=== PATIENT | female | born 1940 | race Caucasian/White ===

== ENCOUNTER 2016-06-13 15:33 | Outpatient (CLI) | payer MEDICARE, OTHER ==
--- NOTE | 2016-06-13 16:08 | RAD ---
CHEST TWO VIEWS: 06/13/16 HISTORY: Cough. Heart size and mediastinum are within normal limits. The lungs are clear of infiltrates. There are a rthritic changes of the spine. IMPRESSION: No active intrathoracic disease. POS: [facility]
== END 2016-06-13 15:34 | disposition home or self-care (01) ==
LOC: NAV RAD 15:33
PROVIDERS: ATTEND Internal Medicine
DX: J20.9 Acute bronchitis, unspecified (principal)
CPT/HCPCS: 71020

== ENCOUNTER 2016-12-19 09:23 | Outpatient (CLI) | payer MEDICARE, OTHER ==
[2016-12-19 12:26] LABS: #Basophils 0.1 thou/uL (0.0-0.2); #Eosinphils 0.1 thou/uL (0.0-0.7); #Lymphocytes 1.2 thou/uL (1.20-3.40); #Monocytes 0.3 thou/uL (0.11-0.59); #Neutrophils 2.1 thou/uL (1.40-6.50); %Basophils 1.7 % (0.0-1.0); %Eosinophils 3.8 % (0.0-10.0); %Monocytes 6.7 % (0.0-10.0); %Neutrophils 55.8 % (42.0-75.0); Hemoglobin 12.5 g/dL (12.0-16.0); Mean Corpuscular HGB CONC 31.2 g/dL (32.0-36.0); Mean Corpuscular Hemoglobin 28.3 pg (27.0-31.0); Mean Corpuscular Volume 90.8 fl (81.0-99.0); Mean Platelet Volume 7.8 fL (7.4-10.4); Platelet Count 177 thou/uL (130-400); RBC Distribution Width 12.4 % (11.5-14.5); Red Blood Cell (RBC) Count 4.41 mill/uL (4.20-5.40); White Blood Cell (WBC) Count 3.7 thou/uL (4.8-10.8)
[2016-12-19 12:55] LABS: ALT (SGPT) 18 U/L (8-55); AST (SGOT) 21 U/L (5-34); Albumin 4.1 g/dL (3.4-4.8); Alkaline Phosphatase 61 U/L (40-150); Anion Gap 14 mmol/L (10-20); BUN (Urea Nitrogen) 14 mg/dL (9.8-20.1); Bilirubin, Direct 0.2 mg/dL (0.1-0.3); Bilirubin, Total 0.4 mg/dL (0.2-1.2); Calc. Creatinine Clearance 0 mL/min (70-130); Carbon Dioxide 28 mmol/L (23-31); Cardiac Risk 2.5 (Less than 4.5); Chloride 105 mmol/L (98-107); Cholesterol 194 mg/dl (< 200 Desired); Estimated GFR-MDRD 73; Globulin 2.1 g/dL (2.4-3.5); Glucose 107 mg/dL (83-110); HDL Cholesterol 78 mg/dL (>60 Neg Risk); LDL Cholesterol, Calculated 101 mg/dL; Potassium 5.1 mmol/L (3.5-5.1); Protein, Total 6.2 g/dL (6.0-8.3); Sodium 142 mmol/L (136-145); Triglycerides 73 mg/dL (Less than 150)
[2016-12-19 13:07] LABS: Hemoglobin A1c 6.3 % (4.0-6.0)
[2016-12-19 13:35] LABS: Bilirubin Negative (Negative); Blood, Urine Negative (Negative); Clarity Cloudy (Clear); Glucose, Urine (Dipstick) Negative (Negative); Leukocyte Trace (Negative); Nitrite Positive (Negative); Protein, Urine (Dipstick) Negative (Neg-Trace); Specific Gravity, Urine 1.025 (1.005-1.030); Urobilinogen 0.2 mg/dL (0.2-1.0); pH, Urine 7.5 (5.0-9.0)
[2016-12-19 14:00] LABS: Bacteria/HPF 4+ HPF (None Seen); RBC/HPF 0-3 HPF (0-3); Squamous Epithelial 0-3 HPF (0-3); WBC/HPF 21-50 HPF (0-3)
[2016-12-19 17:58] LABS: Creatinine, Urine 115.31 mg/dL (47-110); Microalbumin Urine 2.6 mg/dL (0.5-50.0); Microalbumin/Creat Ratio 22.5 mg/g (Less than 30)
== END 2016-12-19 09:24 | disposition home or self-care (01) ==
LOC: NAVSJIPCSP 09:23
PROVIDERS: ATTEND Internal Medicine
DX: N39.0 Urinary tract infection, site not specified (principal); Z79.899 Other long term (current) drug therapy
CPT/HCPCS: 36415; 80053; 80061; 81003; 81015; 82043; 82248; 83036; 84443; 85025; 87077; 87086

== ENCOUNTER 2018-11-19 15:22 | Inpatient (IN) | payer MEDICARE, OTHER ==
[~2018-11-19 15:22] MED LIST: Iopamidol 370 76% 100 ML VIAL ONE
[2018-11-19 16:15] LABS: #Eosinphils 0.1 thou/uL (0.0-0.7); #Lymphocytes 0.3 thou/uL (1.20-3.40); #Monocytes 0.2 thou/uL (0.11-0.59); #Neutrophils 4.2 thou/uL (1.40-6.50); %Basophils 0.6 % (0.0-1.0); %Eosinophils 2.7 % (0.0-10.0); %Lymphocytes 5.2 % (21.0-51.0); %Monocytes 3.2 % (0.0-10.0); %Neutrophils 88.3 % (42.0-75.0); Hemoglobin 12.5 g/dL (12.0-16.0); Mean Corpuscular HGB CONC 31.5 g/dL (32.0-36.0); Mean Corpuscular Hemoglobin 28.1 pg (27.0-31.0); Mean Corpuscular Volume 89.2 fL (78.0-98.0); Mean Platelet Volume 7.9 fL (7.4-10.4); Platelet Count 159 thou/uL (130-400); RBC Distribution Width 12.8 % (11.5-14.5); Red Blood Cell (RBC) Count 4.47 mill/uL (4.20-5.40); White Blood Cell (WBC) Count 4.7 thou/uL (4.8-10.8)
[2018-11-19 16:18] LABS: Bilirubin Small (Negative); Blood, Urine Negative (Negative); Clarity Clear (Clear); Glucose, Urine (Dipstick) Negative (Negative); Leukocyte Negative (Negative); Nitrite Negative (Negative); Protein, Urine (Dipstick) 30 mg/dL (Neg-Trace); Urobilinogen 0.2 mg/dL (Less than 2)
[2018-11-19 16:20] LABS: Base Excess-Venous -3.7 mmol/L (-2.0 to 3.0); Bicarbonate (HCO3v) 21.9 mmol/L (22.0-28.0); CO2 Tension (PvCO2) 40.8 mmHg (40.0-50.0); vO2 Saturation-calc 82.5 % (60.0-85.0)
[2018-11-19 16:21] LABS: Calcium, Ionized 1.13 mmol/L (See Comments:); Chloride 103 mmol/L (98-107); Hemoglobin - Calc 14.2 g/dL (12.0-16.0); Sodium 136 mmol/L (138-145); T. Carbon Dioxide 23.1 mmol/L (22.0-28.0)
[2018-11-19 16:25] LABS: ALT (SGPT) 20 U/L (8-55); AST (SGOT) 30 U/L (5-34); Albumin 4.4 g/dL (3.4-4.8); Alkaline Phosphatase 69 U/L (40-150); Anion Gap 18 mmol/L (10-20); BUN (Urea Nitrogen) 19 mg/dL (9.8-20.1); Bilirubin, Total 0.7 mg/dL (0.2-1.2); Calc. Creatinine Clearance 0 mL/min (70-130); Carbon Dioxide 21 mmol/L (23-31); Chloride 101 mmol/L (98-107); Estimated GFR-MDRD 54; Globulin 2.8 g/dL (2.4-3.5); Glucose 144 mg/dL (83-110); Potassium 4.1 mmol/L (3.5-5.1); Protein, Total 7.2 g/dL (6.0-8.3); Sodium 136 mmol/L (136-145)
[2018-11-19 16:25] LABS: PTT 27.1 SEC (22.9-36.1); Prothrombin Time 13.5 SEC (12.0-14.7)
[2018-11-19 16:26] LABS: D-Dimer Test 0.65 *mcg/mL (0.27-0.43)
[2018-11-19 16:27] LABS: Fibrinogen 506 mg/dL (253-463)
--- NOTE | 2018-11-19 16:33 | RAD ---
PORTABLE CHEST: HISTORY: Fever. FINDINGS: Lungs appear clear. Heart and mediastinum unremarkable. Vasculature normal. IMPRESSION: No acute process. POS: [facility]
[2018-11-19 16:45] LABS: Bacteria/HPF Rare-Few HPF (None Seen); RBC/HPF 0-3 HPF (0-3)
[2018-11-19] MEDS ORDERED: Acetaminophen 500 MG TAB ONE (18:11)
[2018-11-19] MEDS ORDERED: Sodium Chloride 0.9% 200 ML ONE (18:11)
[2018-11-19] MEDS ORDERED: Piperacillin/Tazobactam 3.375 GM VIAL ONE (18:11)
[2018-11-19 18:19] LABS: Platelet Count 159 thou/uL (130-400)
--- NOTE | 2018-11-19 19:11 | CT ---
CT ABDOMEN AND PELVIS WITH IV CONTRAST: INDICATIONS: Abdominal pain with fever. COMPARISON: CT abdomen and pelvis from 11/11/2012. FINDINGS: The lung base is clear. The liver, spleen, and pancreas are unremarkable. There is a gastric band in place, which appears adequately positioned. The adrenal glands are normal. The kidneys show evidence of bilateral parapelvic cysts. No definite hydronephrosis. The ureters ar e unremarkable. The urinary bladder is mildly contracted. The small bowel loops are of normal caliber. The patient is post appendectomy. Stool throughout the colon. No focal inflammatory process identified. No evidence of fluid collection or abscess. The uterus and adnexa are unremarkable. The aorta is of normal caliber. IMPRESSION: No evidence of acute process. POS: [facility]
[2018-11-19 19:36] VITALS: BMI 34.3
[2018-11-19] MEDS ORDERED: Ondansetron PF 4 MG/2 ML Vial IVP PRN (19:39)
[2018-11-19] MEDS ORDERED: Ondansetron ODT 4 MG TAB PO PRN (19:39)
[2018-11-19] MEDS ORDERED: Dextrose 5% in Water 1,000 ML IV PRN (20:01)
[2018-11-19] MEDS ORDERED: Dextrose 50% Abboject 50 ML SYRINGE SLOW IVP PRN (20:01)
[2018-11-19] MEDS ORDERED: HumaLOG 300 UNITS/3 ML VIAL SC PRN (20:01)
[2018-11-19 20:04] LABS: Lactic Acid 2.1 mmol/L (0.5-2.2)
[2018-11-19] MEDS: Famotidine/PF 20 mg/2ml Vial SLOW IVP SCH (21:29)
[2018-11-19] MEDS: Famotidine 20 MG TAB PO SCH (21:29)
[2018-11-19] MEDS: Vancomycin HCl 1 GM in Sodium Chloride 0.9% 250 ML 250 ML IVPB SCH (21:30)
[2018-11-20] MEDS: Piperacillin/Tazobactam 3.375 GM in Sodium Chloride 0.9% 100 ML IVPB SCH ×5 (00:17→18:13)
[2018-11-20] MEDS: Sodium Chloride 0.9% 1,000 ML IV SCH ×2 (06:04→12:17)
[2018-11-20 08:18] LABS: #Eosinphils 0.2 thou/uL (0.0-0.7); #Lymphocytes 0.2 thou/uL (1.20-3.40); #Monocytes 0.2 thou/uL (0.11-0.59); #Neutrophils 2.2 thou/uL (1.40-6.50); %Basophils 0.5 % (0.0-1.0); %Eosinophils 6.1 % (0.0-10.0); %Lymphocytes 7.7 % (21.0-51.0); %Monocytes 6.1 % (0.0-10.0); %Neutrophils 79.6 % (42.0-75.0); Hemoglobin 10.5 g/dL (12.0-16.0); Mean Corpuscular HGB CONC 31.5 g/dL (32.0-36.0); Mean Corpuscular Hemoglobin 28.3 pg (27.0-31.0); Mean Platelet Volume 7.5 fL (7.4-10.4); Platelet Count 112 thou/uL (130-400); RBC Distribution Width 12.9 % (11.5-14.5); Red Blood Cell (RBC) Count 3.72 mill/uL (4.20-5.40); White Blood Cell (WBC) Count 2.8 thou/uL (4.8-10.8)
[2018-11-20 08:37] LABS: ALT (SGPT) 20 U/L (8-55); AST (SGOT) 26 U/L (5-34); Albumin 3.5 g/dL (3.4-4.8); Alkaline Phosphatase 53 U/L (40-150); Anion Gap 13 mmol/L (10-20); BUN (Urea Nitrogen) 12 mg/dL (9.8-20.1); Bilirubin, Total 0.6 mg/dL (0.2-1.2); Calc. Creatinine Clearance 83 mL/min (70-130); Calcium 8.7 mg/dL (7.8-10.44); Carbon Dioxide 21 mmol/L (23-31); Chloride 108 mmol/L (98-107); Estimated GFR-MDRD 71; Globulin 1.9 g/dL (2.4-3.5); Glucose 124 mg/dL (83-110); Potassium 3.9 mmol/L (3.5-5.1); Protein, Total 5.4 g/dL (6.0-8.3); Sodium 138 mmol/L (136-145)
[2018-11-20] MEDS: Vancomycin HCl 1 GM in Sodium Chloride 0.9% 250 ML 250 ML IVPB SCH ×2 (09:48→21:05)
[2018-11-20 17:53] LABS: Bilirubin Negative (Negative); Blood, Urine Negative (Negative); Clarity Clear (Clear); Glucose, Urine (Dipstick) Negative (Negative); Leukocyte Negative (Negative); Nitrite Negative (Negative); Protein, Urine (Dipstick) Negative (Neg-Trace); Urobilinogen 0.2 mg/dL (Less than 2)
[2018-11-20 19:48] LABS: Bacteria/HPF None Seen HPF (None Seen); RBC/HPF None Seen HPF (0-3); Squamous Epithelial 0-3 HPF (0-3); WBC/HPF None Seen HPF (0-3)
[2018-11-20] MEDS: Famotidine 20 MG TAB PO SCH (21:07)
[2018-11-20] MEDS: Famotidine/PF 20 mg/2ml Vial SLOW IVP SCH (22:17)
[2018-11-20] MEDS: Acetaminophen 325 MG TAB PO PRN (23:04)
[2018-11-21] MEDS: Piperacillin/Tazobactam 3.375 GM in Sodium Chloride 0.9% 100 ML IVPB SCH ×4 (00:17→17:22)
[2018-11-21] MEDS: Vancomycin HCl 1 GM in Sodium Chloride 0.9% 250 ML 250 ML IVPB SCH (09:47)
[2018-11-21] MEDS: Sodium Chloride 0.9% 1,000 ML IV SCH ×3 (14:07→17:19)
--- NOTE | 2018-11-21 15:54 | PRG ---
DATE OF SERVICE: 11/21/2018 SUBJECTIVE: Ms. Garcia is doing well. Denies any complaints. No lightheadedness, dizziness. Tolerating p.o. intake. Plan is to stop her IV fluids today, switch her to oral antibiotics tomorrow, and anticipate discharging her on Friday, if she continues to improve. She is happy with the plan. OBJECTIVE: VITAL SIGNS: She is afebrile. Heart rate is 70, respirations are 20, oxygen saturation is 95% on room air, blood pressure is 134/67. CARDIOVASCULAR: S1 and S2 plus. RESPIRATORY: Normal vesicular breath sounds. ABDOMEN: Soft, nontender. Bowel sounds heard in all quadrants. EXTREMITIES: Without cyanosis or clubbing. Peripheral pulses are palpable. CENTRAL NERVOUS SYSTEM: Cranial nerves 2 through 12 intact, generalized weakness. IMPRESSION: 1. Resolved hypotension. 2. Possible pyelonephritis clinically. 3. Diabetes mellitus, type 2. 4. Dyslipidemia. PLAN: 1. Discontinue vancomycin and continue Zosyn today. 2. Discontinue IV fluids. 3. Continue home medications. 4. 1800-calorie heart healthy ADA diet. 5. Accu-Cheks with sliding scale coverage. 6. Decubitus precaution. 7. Activity as tolerated. 8. Recheck CBC, BMP in the morning. 9. Anticipate switching her to oral antibiotics tomorrow and possibly home on Friday. Job ID: [id number]
[2018-11-21] MEDS: Famotidine 20 MG TAB PO SCH (21:12)
[2018-11-21] MEDS: Famotidine/PF 20 mg/2ml Vial SLOW IVP SCH (21:13)
[2018-11-22] MEDS: Acetaminophen 325 MG TAB PO PRN (00:12)
[2018-11-22] MEDS: Piperacillin/Tazobactam 3.375 GM in Sodium Chloride 0.9% 100 ML IVPB SCH ×3 (00:12→12:52)
[2018-11-22] MEDS: Sodium Chloride 0.9% 1,000 ML IV SCH ×3 (00:21→14:54)
[2018-11-22 05:19] LABS: Band 4 % (5-11); Eosinophils 7 % (0-10); Hemoglobin 10.1 g/dL (12.0-16.0); Lymphocytes 37 % (21-51); MDiff Complete? YES; Mean Corpuscular HGB CONC 30.9 g/dL (32.0-36.0); Mean Corpuscular Volume 90.5 fL (78.0-98.0); Mean Platelet Volume 7.9 fL (7.4-10.4); Monocytes 4 % (0-10); Neutrophil 48 % (42-75); Platelet Count 117 thou/uL (130-400); Platelet Morphology Comment Appears Decreased; RBC Distribution Width 12.6 % (11.5-14.5); RBC Morphology Normal; Red Blood Cell (RBC) Count 3.62 mill/uL (4.20-5.40); White Blood Cell (WBC) Count 2.1 thou/uL (4.8-10.8)
[2018-11-22 05:26] LABS: Anion Gap 13 mmol/L (10-20); BUN (Urea Nitrogen) 7 mg/dL (9.8-20.1); Calc. Creatinine Clearance 95 mL/min (70-130); Calcium 8.9 mg/dL (7.8-10.44); Carbon Dioxide 24 mmol/L (23-31); Chloride 109 mmol/L (98-107); Estimated GFR-MDRD 82; Glucose 116 mg/dL (83-110); Potassium 3.6 mmol/L (3.5-5.1); Sodium 142 mmol/L (136-145)
--- NOTE | 2018-11-22 15:54 | PRG ---
DATE OF SERVICE: 11/22/2018 SUBJECTIVE: Ms. Garcia is up in her chair and denies any complaints. She is tolerating her diet. No fever or chills. Cultures remain negative. OBJECTIVE: VITAL SIGNS: She is afebrile. Heart rate 75, respirations 18, oxygen saturation 98% on room air, blood pressure 120/72. CARDIOVASCULAR: S1 and S2 plus. RESPIRATORY: Normal vesicular breath sounds. ABDOMEN: Soft, nontender. Bowel sounds heard in all quadrants. EXTREMITIES: Without cyanosis or clubbing. CENTRAL NERVOUS SYSTEM: Awake and responsive. Cranial nerves 2 through 12 intact. Grossly nonfocal. IMPRESSION: 1. Resolving pyelonephritis clinically. 2. Resolved hypotension. 3. Diabetes mellitus type 2. 4. Dyslipidemia. PLAN: 1. Discontinue Zosyn. 2. Start Macrobid 100 mg b.i.d. 3. Discontinue IV access. 4. Ambulate in the hallways as tolerated. 5. Anticipate discharging her home tomorrow after Dr. Castro sees her. 6. Dr. Castro will assume care at 9:00 p.m. [facility]. 7. 1800-calorie heart healthy ADA diet. 8. Accu-Cheks with sliding scale coverage. Job ID: [id number]
[2018-11-22] MEDS ORDERED: Saccharomyces boulardii 250 MG CAP PO SCH (16:00)
[2018-11-22] MEDS: Famotidine 20 MG TAB PO SCH (20:40)
[2018-11-22] MEDS: Famotidine/PF 20 mg/2ml Vial SLOW IVP SCH (20:41)
[2018-11-22] MEDS ORDERED: Nitrofurantoin Monohyd/M-Cryst 100 MG CAP PO SCH (21:00)
[2018-11-23 05:41] LABS: #Eosinphils 0.1 thou/uL (0.0-0.7); #Lymphocytes 1.1 thou/uL (1.20-3.40); #Monocytes 0.3 thou/uL (0.11-0.59); #Neutrophils 1.1 thou/uL (1.40-6.50); %Basophils 1.2 % (0.0-1.0); %Eosinophils 5.4 % (0.0-10.0); %Lymphocytes 42.4 % (21.0-51.0); %Monocytes 9.6 % (0.0-10.0); %Neutrophils 41.5 % (42.0-75.0); Mean Corpuscular HGB CONC 30.8 g/dL (32.0-36.0); Mean Corpuscular Volume 90.6 fL (78.0-98.0); Mean Platelet Volume 7.6 fL (7.4-10.4); Platelet Count 152 thou/uL (130-400); RBC Distribution Width 12.7 % (11.5-14.5); Red Blood Cell (RBC) Count 3.58 mill/uL (4.20-5.40); White Blood Cell (WBC) Count 2.7 thou/uL (4.8-10.8)
--- NOTE | 2018-11-23 07:02 | PRG ---
DATE OF SERVICE: 11/20/2018 SUBJECTIVE: The patient feels slightly better today. No further nausea, vomiting, but still feels very weak and having diffuse myalgias. She has had no fever or chills through the night. OBJECTIVE: VITAL SIGNS: Temperature 97.8, pulse 67, respirations 16, O2 sats 98% on room air, blood pressure is still low at 95/52. LUNGS: Clear. CARDIAC: Regular rhythm. ABDOMEN: Soft and nontender. SKIN/EXTREMITIES: No edema, clubbing, cyanosis, or cellulitis LABORATORY DATA: Sodium 138, potassium 3.9, chloride 108, bicarb 21, BUN 12, creatinine 0.79, glucose 124, total protein 5.4, albumin 1.9, repeat lactate is 0.9. Urine and blood cultures at this point are showing no growth. White count is still low at 2800, hematocrit 33, hemoglobin 10, normal differential, platelet count was low to 112,000. ASSESSMENT: Resolving sepsis syndrome, unknown etiology, possibly due to pyelonephritis with negative urine and blood cultures at this time, but persistent hypotension although resolved, elevated lactate. PLAN: Continue IV fluids. Continue IV Zosyn and vancomycin until cultures return negative. Restart on diabetic diet. Hold home medications of metformin at this time until the patient is eating, and renal function and blood pressure are normal. Job ID: [id number]
[2018-11-23 07:43] VITALS: BP 134/66; TEMP 98.2
[2018-11-23] MEDS ORDERED: Saccharomyces boulardii 250 MG CAP PO SCH (09:00)
--- NOTE | 2018-11-23 10:11 | DIS ---
DATE OF ADMISSION: 11/19/2018 DATE OF DISCHARGE: 11/23/2018 FINAL DIAGNOSES: 1. Sepsis with hypotension, elevated lactic acid. 2. Pyelonephritis, left kidney. 3. Type 2 diabetes. 4. Acute renal failure with GFR decreasing from baseline of 82 to 41, but then resolved with fluids. HOSPITAL COURSE: The patient is a very pleasant 78-year-old white female with a long history of type 2 diabetes, morbid obesity, status post bariatric surgery several years ago, who has been doing well with no complaints until the night before admission, she had acute onset of rigors and chills, presented to my office with nausea and vomiting and was found to be hypotensive with a blood pressure of 80/50 and confusion, somewhat altered in her mental responses. She was transferred to the emergency room, where she was fluid resuscitated, had blood and urine cultures done. Had CT of the abdomen and pelvis done, which showed no significant abnormalities as did chest x-ray. She was found to have left CVA tenderness and has had a previous history of dysuria and hematuria three days previously, which is being treated with Bactrim. It was felt that she had acute sepsis with septic shock, elevated lactate, altered mental status secondary to probable pyelonephritis. She was started with broad-spectrum antibiotics with vancomycin and Zosyn. After the fluid bolus in the emergency room with 2000 mL, she was started on 125 mL an hour of saline, continued on this through the next day. Her blood pressure remained low for the following 18 hours, but finally normalized by the afternoon of the next day. She felt better with no further nausea and vomiting, was very weak with myalgias, but no cough, pain, or shortness of breath. She was slowly advanced on her diet. She did have laboratories, which showed an abnormality of platelet count decreasing from 159,000 on admission to 112,000, felt possibly due to the Zosyn because this was improved to 152 on discharge. She had her Zosyn discontinued after two days of negative cultures, was started on nitrofurantoin, appeared to continue doing well with this with no further fever, chills, nausea, or dysuria. Her white count was 4700 on admission, did go down to 2100 during her acute illness, but then increased to 2700 prior to discharge. Hemoglobin initially decreased from 12.5 on admission to 10.5 and then stabilized. She had a significant shift to the left of 88% on admission, but had normalized to 41% neutrophils prior to discharge with 42% lymphocytes. Laboratory showed Accu-Cheks remained stable at 134 to 139 only on sliding scale. As mentioned above, her initial lactic acid was elevated to 2.4, only decreased to 2.1 after admission and fluid resuscitation to the emergency room, but the next morning after the IV fluids for 24 hours, decreased to 0.9. Her renal function remained normal with a creatinine of 0.9 and GFR of 54, but did improve back to her baseline of GFR of 82, creatinine of 0.69 prior to discharge. Potassium remains stable at 4.1 to 3.6 as did sodium and bicarb remains stable also at 21 to 24. She was ambulating in the angel, eating well, felt well for the 24 hours prior to discharge only on nitrofurantoin and therefore was discharged home on this medication of 100 mg twice daily for the next 10 days as well as probiotics. She will be continued on her metformin, taken at home 500 twice daily and will follow up with myself in two weeks. Job ID: [id number]
== END 2018-11-23 08:00 | disposition home or self-care (01) | DRG 871 ==
LOC: NAV ERS 15:22 → NAV ACUTE 18:38
PROVIDERS: ADMIT Internal Medicine; ATTEND Internal Medicine
DX: A41.9 Sepsis, unspecified organism (principal); R65.21 Severe sepsis with septic shock; N12 Tubulo-interstitial nephritis, not specified as acute or chronic; N17.9 Acute kidney failure, unspecified; E11.9 Type 2 diabetes mellitus without complications; E78.5 Hyperlipidemia, unspecified; E78.00 Pure hypercholesterolemia, unspecified; J30.2 Other seasonal allergic rhinitis; I95.9 Hypotension, unspecified; Z90.49 Acquired absence of other specified parts of digestive tract; Z98.84 Bariatric surgery status; Z90.710 Acquired absence of both cervix and uterus; Z88.8 Allergy status to other drugs, medicaments and biological substances
CPT/HCPCS: 36415; 36416; 71045; 74177; 80048; 80053; 81001; 81003; 81015; 82330; 82435; 82803; 83605; 84132; 84295; 85025; 85049; 85300; 85362; 85379; 85384; 85610; 85730; 87040; 87086; 87804; 93005; 96361; 96365; 96368; J2543; J3370; J3490; J7050; Q9967